=== PATIENT | female | born 1980 ===

== ENCOUNTER 2018-03-18 09:18 | Emergency (ER) | payer MEDICAID ==
[~2018-03-18] VITALS: Ht 152.4 cm; Wt 77.1 kg
[2018-03-18 09:28] VITALS: Ht 152.4 cm; Wt 77.1 kg
[2018-03-18 10:14] LABS: microscopic required? YES; urine erythrocyte NEGATIVE (NEGATIVE)
[2018-03-18 10:20] LABS: BASOPHIL % 0.5 % (0-2); PLATELET COUNT 335 x10^3mcL (130-400); RED CELL DISTRIBUTION WIDTH 12.8 % (11.5-14.5)
[2018-03-18 11:25] LABS: ALBUMIN 3.7 g/dL (3.4-5.0); ALKALINE PHOSPHATASE 94 U/L (46-116); ALT/SGPT 131 U/L (14-59); AMYLASE 35 U/L (25-115); AST/SGOT 66 U/L (15-37); BILIRUBIN TOTAL 0.39 mg/dL (0.20-1.00); CALCIUM 8.8 mg/dL (8.5-10.1); CARBON DIOXIDE 22.6 mmol/L (21-32); CHLORIDE SERUM 101 mmol/L (98-107); CREATININE SERUM 0.6 mg/dL (0.6-1.0); GFR1 > 60 mL/min; GLUCOSE SERUM 146 mg/dL (74-106); LIPASE 92 IU/L (73-393); SODIUM SERUM 138 mmol/L (136-145); TOTAL PROTEIN, SERUM 8.2 g/dL (6.4-8.2)
[2018-03-18 11:28] LABS: POTASSIUM SERUM 2.8 mmol/L (3.5-5.1)
[2018-03-18 13:21] VITALS: BP 132/79
== END 2018-03-18 13:21 | disposition home or self-care (01) ==
LOC: ED 09:18
PROVIDERS: Emergency Medicine
DX: E87.6 Hypokalemia (principal); Z90.49 Acquired absence of other specified parts of digestive tract
CPT/HCPCS: 82962; 83880; J1885; J3480; J3490; J7030; J7040; Q9967